=== PATIENT | male | born 1965 | race Caucasian/White ===

== ENCOUNTER 2018-11-28 21:26 | Inpatient (IN) ==
[2018-11-28] MEDS ORDERED: Ipratropium/Albuterol Neb 3 ML IH ONE (21:33)
[2018-11-28] MEDS ORDERED: methylPREDNISolone 125 MG/2 ML VIAL IVP ONE (21:33)
--- NOTE | 2018-11-28 21:33 | Emergency Department Note ---
Disposition Clinical Impression: Acute exacerbation of chronic obstructive airways disease, Hypoxia Fever Qualifiers: Fever type: due to other condition Qualified Code(s): R50.81 - Fever presenting with conditions classified elsewhere Disposition: Admitted As Inpatient Condition: Fair Time of Disposition: 23:30 SOB HPI - General Stated Complaint: NICOLE Time Seen by Provider: 11/28/18 21:32 Source: patient, EMS Mode of arrival: EMS Limitations: no limitations Nursing Notes Reviewed: Yes Vital Signs Reviewed: Yes - History of Present Illness Presents to the ED via EMS with complaint of shortness of breath and a dry cough. He has been short of breath for 4 days. He reports some rhinorrhea but no nasal congestion. No sore throat or sneezing. Cough is nonproductive. He reports some nausea as well as some watery diarrhea. No abdominal pain. He complains of chest discomfort only during coughing episodes. No urinary symptoms. No leg swelling. He does report subjective fever but has not checked his temperature at home. He has a history of COPD for which she uses Symbicort and albuterol. He is had one nebulizer treatment at home today as well as using his inhaler twice prior to calling the squad. Per EMS he was 89% on room air on their arrival. They placed him on nasal cannula 4 L and he improved into the 90s. Patient has not recently been hospitalized, on steroids or antibiotics. He denies any recent travel. His son does have a cold currently. The only other medical issues high blood pressure. - Related Data Home Medications Medication Instructions Recorded Confirmed Albuterol Sulfate [Proair HFA] 1 puff IH Q4HR 03/22/15 11/29/18 Losartan [Cozaar] 25 mg PO DAILY 03/22/15 11/29/18 amLODIPine [Norvasc] 10 mg PO DAILY 11/29/18 11/29/18 Allergies Allergy/AdvReac Type Severity Reaction Status Date / Time morphine Allergy Rash Verified 11/28/18 21:40 Constitutional: Reports: fever (subjective). Denies: chills, weakness, weight change Eyes: Denies: eye pain, eye discharge, vision change ENT ED: Denies: ear pain, throat pain, dental pain, hearing loss, epistaxis, congestion, dysphagia Cardiovascular: Denies: chest pain, palpitations, dyspnea on exertion, edema, syncope Respiratory: Reports: cough, dyspnea. Denies: wheezes, hemoptysis, stridor, sputum production Gastrointestinal: Reports: nausea, diarrhea. Denies: abdominal pain, vomiting Genitourinary: Denies: urgency, dysuria, frequency, hematuria Musculoskeletal: Denies: back pain, neck pain, arthralgia, myalgia Integumentary: Denies: rash, abrasion, lesions Neurological: Denies: headache, weakness, numbness, paresthesias, confusion, abnormal gait, vertigo Psychiatric: Denies: anxiety, depression, suicidal thoughts, homicidal thoughts, auditory hallucinations, visual hallucinations Endocrine: Denies: fatigue Hematological/Lymphatic: Denies: easy bleeding, easy bruising Allergic/Immunologic: Denies: facial swelling, urticaria Past Medical History - Past Medical History Medical history: Reports: COPD, hypertension Surgical history: Reports: herniorrhaphy, other Psychiatric history: Reports: anxiety, panic disorder - Social History Smoking Status: Former smoker Smokeless Tobacco Status: No Alcohol use: Reports: heavy Drug use: Reports: none Physical Exam - General Limitations: no limitations General appearance: alert, in no apparent distress - Head Head exam: atraumatic, normocephalic, normal inspection - Eye Eye exam: Present: normal appearance, PERRL, EOMI - ENT ENT exam: normal exam, normal oropharynx, mucous membranes moist - Neck Neck exam: Present: normal inspection, full ROM, trachea midline - Chest Chest inspection: Present: normal inspection, symmetric chest wall rise - Respiratory Respiratory exam: Present: wheezes (scattered) - Expanded Respiratory Exam Location: decreased breath sounds: Left, Right, Upper, Lower - Cardiovascular Cardiovascular exam: Present: regular rate, normal rhythm, normal heart sounds - Abdominal Exam Abdominal exam: Present: soft, Non-Tender. Absent: tenderness, distention, guarding, rebound, rigidity - Extremities Exam Extremities exam: Present: normal inspection, full ROM. Absent: tenderness, pedal edema - Back Exam Back exam: Present: normal inspection, full ROM. Absent: tenderness - Neurological Exam Neurological exam: Present: alert, oriented X3 - Psychiatric Psychiatric exam: Present: normal affect, normal mood - Skin Skin exam: Present: warm, dry, intact, normal color Course Course Narrative: Patient presents to the ED with shortness of breath and a dry cough. On arrival he was febrile at 101.7 sided tachycardic at 112. Oxygen saturations are in the low 90s on 4 L which she is tolerating well. He had some scattered wheezing and rhonchi. Will give a nebulizer treatment and steroids. Will obtain chest x-ray and lab work. I suspect pneumonia versus COPD exacerbation. - Reevaluation(s) Reevaluation #1: Lab work showed a leukocytosis. Lactic acid was normal. BMP revealed what appears to be acute kidney injury with elevated creatinine compared patient's baseline. Chest x-ray did not reveal any pneumonia. Attempts to wean him off oxygen were unsuccessful his sats dropping back into the upper 80s. Based on these findings patient needs admission for IV antibiotics and continued oxygen. Discussed this with the patient and he is in agreement. Will obtain blood cultures prior to initiating antibiotics. Will contact the hospitalist on-call. Reevaluation #2: I spoke to the hospice on-call, Dr. Baird who agreed to accept the patient. Reevaluation #3: It was brought to my attention by staff that patient's PCP is Fabienne Mcallister and therefore he should be admitted by the physician on-call for Dr. Graves and Dr. Corrales's group. Dr. Corrales was contacted and agreed to accept the patient. Dr. Baird was notified of the change. Time: 01:20 Vital Signs Temperature 101.7 F H 11/28/18 21:32 Pulse Rate 110 11/28/18 21:32 Respiratory Rate 20 11/28/18 21:32 Blood Pressure 124/75 11/28/18 21:32 O2 Sat by Pulse Oximetry 93 11/28/18 21:32 Temperature 97.5 F L 11/29/18 02:09 Pulse Rate 71 11/29/18 02:09 Respiratory Rate 16 11/29/18 02:09 Blood Pressure 120/85 11/29/18 02:09 O2 Sat by Pulse Oximetry 94 11/29/18 02:20 Oxygen Delivery Oxygen Delivery Nasal Cannula Shortness of Breath/Dyspnea - Differential Diagnosis Likely: acute exacerbation of chronic obstructive airways disease, pneumonia - Medical Records Medical records reviewed: Yes I reviewed the patient's medical records. - Lab Data Lab results reviewed: Yes I reviewed the patient's lab results. Result diagrams: 11/28/18 21:50 11/28/18 21:50 Lab Results 11/28/18 11/28/18 11/28/18 Range/Units 21:50 21:50 21:50 WBC 11.3 H (4.3-11.1) K/mcL RBC 4.28 (4.19-5.50) M/mcL Hgb 14.2 (12.9-16.9) g/dL Hct 39.7 (37.5-50.1) % MCV 92.8 (83.0-100.0) fL MCH 33.2 (28.0-33.3) pg MCHC 35.8 H (31.6-35.5) g/dL RDW 13.0 (11.5-14.5) % Plt Count 227 (140-400) K/mcL MPV 8.5 L (9.4-12.4) fL Immature Gran % 0.7 (0-4) % Seg Neutrophils % 88.5 % Lymphocytes % 3.6 % Monocytes % 6.9 % Eosinophils % 0.0 % Basophils % 0.3 % Neutrophils # 10.0 H (1.6-8.9) K/mcL Lymphocytes # 0.4 L (0.6-4.6) K/mcL Monocytes # 0.8 (0.0-1.3) K/mcL Eosinophils # 0.0 (0.0-0.6) K/mcL Basophils # 0.0 (0.0-0.2) K/mcL Sodium 123 L (136-145) mEq/L Potassium 4.2 (3.5-5.1) mEq/L Chloride 97 L (98-107) mEq/L Carbon Dioxide 17 L (23-29) mEq/L BUN 23 H (6-20) mg/dL Creatinine 1.64 H (0.70-1.30) mg/dL Est GFR ( Amer) 54 L (> 60) Est GFR (Non-Af Amer) 44 L (> 60) BUN/Creatinine Ratio 14 (6-26) Glucose 127 H (70-105) mg/dL Calculated Osmolality 261 L (280-300) Lactic Acid 0.7 (0.5-2.2) mmol/L Calcium 9.1 (8.6-10.3) mg/dL Troponin I < 0.03 (< 0.04) ng/mL B-Natriuretic Peptide (Less than 100) pg/mL 11/28/18 11/28/18 Range/Units 21:50 23:45 WBC (4.3-11.1) K/mcL RBC (4.19-5.50) M/mcL Hgb (12.9-16.9) g/dL Hct (37.5-50.1) % MCV (83.0-100.0) fL MCH (28.0-33.3) pg MCHC (31.6-35.5) g/dL RDW (11.5-14.5) % Plt Count (140-400) K/mcL MPV (9.4-12.4) fL Immature Gran % (0-4) % Seg Neutrophils % % Lymphocytes % % Monocytes % % Eosinophils % % Basophils % % Neutrophils # (1.6-8.9) K/mcL Lymphocytes # (0.6-4.6) K/mcL Monocytes # (0.0-1.3) K/mcL Eosinophils # (0.0-0.6) K/mcL Basophils # (0.0-0.2) K/mcL Sodium (136-145) mEq/L Potassium (3.5-5.1) mEq/L Chloride (98-107) mEq/L Carbon Dioxide (23-29) mEq/L BUN (6-20) mg/dL Creatinine (0.70-1.30) mg/dL Est GFR ( Amer) (> 60) Est GFR (Non-Af Amer) (> 60) BUN/Creatinine Ratio (6-26) Glucose (70-105) mg/dL Calculated Osmolality (280-300) Lactic Acid 0.5 (0.5-2.2) mmol/L Calcium (8.6-10.3) mg/dL Troponin I (< 0.04) ng/mL B-Natriuretic Peptide 43 (Less than 100) pg/mL - Radiology Data Radiology results reviewed: Yes I reviewed the patient's radiology results. ITS Impressions Chest X-Ray 11/28/18 21:33 IMPRESSION: No acute process. D/ / Pedro Randolph MD / Pedro Randolph MD Interpreting Provider: Pedro Randolph MD - EKG Data EKG attestation: Yes I reviewed and interpreted this EKG. EKG shows normal: Reports: sinus rhythm Rate: Reports: normal (rate 109), tachycardia (R) Rhythm: Reports: NSR [place]/QRS: Reports: normal
[2018-11-28 22:01] LABS: Basophils % 0.3 %; Hematocrit 39.7 % (37.5-50.1); Hemoglobin 14.2 g/dL (12.9-16.9); Immature Granulocytes % 0.7 % (0-4); Lymphocytes # 0.4 K/mcL (0.6-4.6); Lymphocytes % 3.6 %; Mean Corpuscular HGB Conc 35.8 g/dL (31.6-35.5); Mean Corpuscular Hemoglobin 33.2 pg (28.0-33.3); Mean Corpuscular Volume 92.8 fL (83.0-100.0); Mean Platelet Volume 8.5 fL (9.4-12.4); Monocytes # 0.8 K/mcL (0.0-1.3); Monocytes % 6.9 %; Platelet Count 227 K/mcL (140-400); Red Blood Count 4.28 M/mcL (4.19-5.50); Segmented Neutrophils % 88.5 %; White Blood Count 11.3 K/mcL (4.3-11.1)
[2018-11-28 22:14] LABS: BUN/Creatinine Ratio 14 (6-26); Blood Urea Nitrogen 23 mg/dL (6-20); Calcium 9.1 mg/dL (8.6-10.3); Carbon Dioxide 17 mEq/L (23-29); Chloride 97 mEq/L (98-107); Glucose 127 mg/dL (70-105); Osmolality,Calculated 261 (280-300); Potassium 4.2 mEq/L (3.5-5.1); Sodium 123 mEq/L (136-145); eGFR For African Americans 54 (> 60); eGFR For Non-African Americans 44 (> 60)
[2018-11-28 22:18] LABS: Troponin I < 0.03 ng/mL (< 0.04)
[2018-11-28] MEDS ORDERED: Azithromycin 500 MG in D5% in Water 250 ML IVPB ONE (23:31)
[2018-11-28] MEDS ORDERED: 0.9 % Sodium Chloride 1,000 ML IVC SCH (23:45)
[2018-11-28] MEDS ORDERED: Naloxone 0.4 MG/ML INJ IVP PRN (23:56)
[2018-11-29] MEDS ORDERED: Ipratropium/Albuterol Neb 3 ML IH SCH
[2018-11-29] MEDS ORDERED: cefTRIAXone 1,000 MG in Water for inj. (sterile) 10 ML IVP ONE (01:10)
[2018-11-29] MEDS ORDERED: Naloxone 0.4 MG/ML INJ IVP PRN (02:01)
[2018-11-29] MEDS: 0.9 % Sodium Chloride 1,000 ML IVC SCH ×3 (02:33→17:16)
[2018-11-29] MEDS: Ipratropium/Albuterol Neb 3 ML IH SCH ×5 (04:24→20:39)
[2018-11-29 06:16] LABS: Basophils % 0.1 %; Hematocrit 38.9 % (37.5-50.1); Hemoglobin 13.4 g/dL (12.9-16.9); Immature Granulocytes % 0.6 % (0-4); Lymphocytes # 0.3 K/mcL (0.6-4.6); Lymphocytes % 2.9 %; Mean Corpuscular HGB Conc 34.4 g/dL (31.6-35.5); Mean Corpuscular Hemoglobin 32.8 pg (28.0-33.3); Mean Corpuscular Volume 95.3 fL (83.0-100.0); Mean Platelet Volume 9.1 fL (9.4-12.4); Monocytes % 2.1 %; Platelet Count 257 K/mcL (140-400); Red Blood Count 4.08 M/mcL (4.19-5.50); Red Cell Distribution Width 12.9 % (11.5-14.5); Segmented Neutrophils % 94.3 %; White Blood Count 11.6 K/mcL (4.3-11.1)
[2018-11-29 06:26] LABS: Monocytes # 0.2 K/mcL (0.0-1.3); Neutrophils # 10.9 K/mcL (1.6-8.9)
[2018-11-29] MEDS: *HR* Enoxaparin 40 MG/0.4 ML SYRINGE SQ SCH (06:27)
[2018-11-29 06:48] LABS: Calcium 8.8 mg/dL (8.6-10.3); Potassium 4.7 mEq/L (3.5-5.1)
[2018-11-29] MEDS ORDERED: *HR* Enoxaparin 40 MG/0.4 ML SYRINGE SQ SCH (07:00)
[2018-11-29] MEDS: methylPREDNISolone 125 MG/2 ML VIAL IVP SCH ×2 (08:09→16:50)
[2018-11-29] MEDS: amLODIPine 5 MG TABLET PO SCH (08:09)
--- NOTE | 2018-11-29 09:33 | Internal Med History&Physical ---
Date of Encounter: 11/29/18 Time of Encounter: 14:13 Assessment and Plan (1) Acute exacerbation of chronic obstructive airways disease Current visit: Yes Status: Acute he is on oxygen, will cont duonebs, solumedrol, rocephin and zithromax (2) Essential (primary) hypertension Current visit: Yes Status: Acute he is on his home medication, but if he gets low will hold medication (3) Anxiety Current visit: Yes Status: Acute (4) GERD (gastroesophageal reflux disease) Current visit: Yes Status: Acute Qualifiers: Esophagitis presence: esophagitis presence not specified Qualified Code(s): K21.9 - Gastro-esophageal reflux disease without esophagitis (5) Hypoxia Current visit: Yes Status: Acute due to copd on oxygen (6) Fever Current visit: Yes Status: Acute blood cultures pending on rocephin and zithromax Qualifiers: Fever type: unspecified Qualified Code(s): R50.9 - Fever, unspecified (7) Hyponatremia Current visit: Yes Status: Acute likely due to dehydrtion improving with ivf will continue (8) Acute renal insufficiency Current visit: Yes Status: Acute due to dehydration and due to 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 will cont ivf and follow creat (9) S/p nephrectomy Current visit: Yes Status: Acute (10) DVT prophylaxis Current visit: Yes Status: Acute lovenox (11) ETOH abuse Current visit: Yes Status: Acute Please him on the CIWA protocol. Will use Ativan as needed. He currently does not show any signs of withdrawal. Discussed with him that we will be monitoring for Internal Medicine - H&P: HPI Chief complaint: cannot breath Admitted From: Home Plans for Post Hospital Care: Home History of present illness: Mr. Mo is a 53 year old male Rest medical history of COPD who presents to the emergency room with cough we shortness of breath and fever. He called the squad he was given duo nebs. In the emergency room is given Solu-Medrol Zithromax duo nebs his chest x-ray did not show any acute illness. He was febrile 101.7. Blood cultures were obtained. He did improve in the ER but he did have another episode in his room this morning with coughing wheezing shortness breath he could not get his air staff came in he was sat in the 90s on oxygen. He was given a DuoNeb shortness of breath to get better. His son was ill for a couple of days prior to him becoming ill on Tuesday. He started out with cough rhinorrhea sneezing and dark sputum wheezing shortness of breath progressively got worse yesterday he discontinued his breath he was really tired he had several episodes of diarrhea over the past several days he did have an episode of diarrhea today he denies melena hematochezia. He denies nausea vomiting or abdominal pain. He does get dizzy when he coughs he has had some palpitations but denies chest pain. He does feel better today he is not a shortness breath is when he was prior. Past Med Surg Social Fam HX - Past Medical History Medical history: COPD, GERD, hypertension Psychiatric history: anxiety, panic disorder - Past Surgical History Surgical History: herniorrhaphy, other (living kidney donor 11/2003) Additional surgical history: LT KIDNEY REMOVED - Social History Smoking Status: Current every day smoker Smokeless Tobacco Status: No Alcohol use: heavy, recent Drug use: none Internal Medicine - H&P: Meds Albuterol Sulfate [Proair HFA] 1 puff IH Q4HR 03/22/15 [History] Losartan [Cozaar] 25 mg PO DAILY 03/22/15 [History] amLODIPine [Norvasc] 10 mg PO DAILY 11/29/18 [History] Allergy/AdvReac Type Severity Reaction Status Date / Time morphine Allergy Rash Verified 11/28/18 21:40 All Systems PM: A 10-system review of systems was performed and is negative for pertinent findings except as documented above in the HPI. - Constitutional Constitutional: chills, fatigue, fever(s), night sweats - EENT Eyes: no change in vision Nose, mouth and throat: nasal congestion - Cardiovascular Cardiovascular ROS IM: diaphoresis, dyspnea, lightheadedness (With cough), orthopnea, palpitations, no chest pain, no claudication - Respiratory Respiratory: cough, dyspnea, wheezing, change in phlegm color - Gastrointestinal Gastrointestinal: dyspepsia, loose stools, no abdominal pain, no constipation, no diarrhea, no melena, no nausea, no vomiting - Genitourinary Genitourinary ROS male: no difficulty urinating, no dysuria, no hematuria, no urinary frequency, no urinary incontinence - Musculoskeletal Musculoskeletal ROS IM: no limited range of motion, no numbness - Integumentary Integumentary IM: no pruritus, no rash - Neurological Neurological ROS: no numbness, no tremor(s) - Psychiatric Psychiatric: anxiety - Endocrine Endocrine IM: fatigue - Allergic/Immunologic Allergic/Immunologic: wheezing - Constitutional Vitals: Temp Pulse Resp BP Pulse Ox 96.4 F L 71 20 106/72 92 11/29/18 08:08 11/29/18 08:08 11/29/18 08:08 11/29/18 08:08 11/29/18 08:08 General appearance: Present: A&O X 3, no acute distress, answers questions appropriately - Head Head exam: Present: atraumatic, normocephalic - Respiratory Respiratory exam: Present: decreased breath sounds, prolonged expiratory phase, wheezes. Absent: accessory muscle use, tachypnea - Cardiovascular Cardiovascular exam: Present: RRR, +S1, +S2. Absent: systolic murmur - GI/Abdominal GI/Abdominal exam: Present: normal bowel sounds, soft, no peritoneal signs. Absent: distended, guarding, rebound, tenderness - Extremities Exam Extremities exam: Present: normal capillary refill. Absent: pedal edema - Skin Skin exam: Present: dry, warm. Absent: rash Internal Med - H&P Results - Labs CBC & Chem 7: 11/29/18 04:45 11/29/18 04:45 Labs: Short CBC 11/28/18 11/29/18 Range/Units 21:50 04:45 WBC 11.3 H 11.6 H (4.3-11.1) K/mcL Hgb 14.2 13.4 (12.9-16.9) g/dL Hct 39.7 38.9 (37.5-50.1) % Plt Count 227 257 (140-400) K/mcL Neutrophils # 10.0 H 10.9 H (1.6-8.9) K/mcL BMP 11/28/18 11/29/18 21:50 04:45 Sodium 123 L 128 L Potassium 4.2 4.7 Chloride 97 L 98 Carbon Dioxide 17 L 22 L BUN 23 H 24 H Creatinine 1.64 H 1.65 H Glucose 127 H 163 H Calcium 9.1 8.8 Cardiac Enzymes 11/28/18 Range/Units 21:50 Troponin I < 0.03 (< 0.04) ng/mL - Impressions ITS Impressions Chest X-Ray 11/28/18 21:33 IMPRESSION: No acute process. D/ / Pedro Randolph MD / Pedro Randolph MD Interpreting Provider: Pedro Randolph MD - VTE Reasons for not Prescribing Prophylaxis: Treatment not Indicated - Low risk for VTE
[2018-11-29] MEDS ORDERED: *HR* LORazepam 2 MG/ML VIAL IVP PRN (14:11)
[2018-11-29] MEDS: Famotidine 20 MG TABLET PO SCH ×2 (16:50→20:39)
--- NOTE | 2018-11-29 16:54 | Electrocardiograph Report ---
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
[2018-11-29] MEDS ORDERED: Thiamine (B-1) 100 MG, Folic Acid 1 MG, MVI, adult with vitamin K 10 ML in 0.9 % Sodi... IVPB SCH (18:00)
[2018-11-29] MEDS: Thiamine (B-1) 100 MG TABLET PO SCH (18:24)
[2018-11-30] MEDS: Ipratropium/Albuterol Neb 3 ML IH SCH ×7 (00:05→23:52)
[2018-11-30] MEDS: methylPREDNISolone 125 MG/2 ML VIAL IVP SCH ×3 (00:05→17:14)
[2018-11-30] MEDS: 0.9 % Sodium Chloride 1,000 ML IVC SCH (03:13)
[2018-11-30] MEDS: *HR* Enoxaparin 40 MG/0.4 ML SYRINGE SQ SCH (04:40)
[2018-11-30 07:08] LABS: Basophils % 0.1 %; Hematocrit 33.7 % (37.5-50.1); Hemoglobin 11.8 g/dL (12.9-16.9); Immature Granulocytes % 0.3 % (0-4); Lymphocytes # 0.3 K/mcL (0.6-4.6); Lymphocytes % 2.7 %; Mean Corpuscular Hemoglobin 32.9 pg (28.0-33.3); Mean Corpuscular Volume 93.9 fL (83.0-100.0); Mean Platelet Volume 9.4 fL (9.4-12.4); Monocytes % 2.9 %; Platelet Count 243 K/mcL (140-400); Red Blood Count 3.59 M/mcL (4.19-5.50); White Blood Count 11.9 K/mcL (4.3-11.1)
[2018-11-30 07:22] LABS: Alanine Aminotransferase 18 Units/L (7-52); Albumin 3.4 g/dL (3.5-5.7); Albumin/Globulin Ratio 1.2 (1.1-2.2); Alkaline Phosphatase 46 Units/L (34-104); Aspartate Amino Transferase 16 Units/L (13-39); BUN/Creatinine Ratio 22 (6-26); Bilirubin,Direct 0.1 mg/dL (0.0-0.2); Bilirubin,Indirect 0.1 mg/dL (0.0-1.2); Bilirubin,Total 0.2 mg/dL (0.3-1.0); Blood Urea Nitrogen 20 mg/dL (6-20); Calcium 8.6 mg/dL (8.6-10.3); Carbon Dioxide 18 mEq/L (23-29); Chloride 106 mEq/L (98-107); Globulin 2.9 g/dL (2.4-3.5); Glucose 186 mg/dL (70-105); Osmolality,Calculated 279 (280-300); Potassium 3.8 mEq/L (3.5-5.1); Sodium 131 mEq/L (136-145); Total Protein 6.3 g/dL (6.4-8.9); eGFR For African Americans > 60 (> 60); eGFR For Non-African Americans > 60 (> 60)
[2018-11-30 08:15] LABS: Monocytes # 0.4 K/mcL (0.0-1.3); Neutrophils # 11.2 K/mcL (1.6-8.9)
--- NOTE | 2018-11-30 08:43 | Internal Med Progress Note ---
Date of Encounter: 11/30/18 Time of Encounter: 09:30 - Assessment and plan (1) Acute exacerbation of chronic obstructive airways disease Current Visit: Yes Status: Acute Assessment and plan: He continues to have an oxygen requirement he was not on oxygen prior to admission will continue Solu-Medrol Rocephin and Zithromax duo nebs. Not stable for discharge at this point as he still has the oxygen requirement (2) Essential (primary) hypertension Current Visit: Yes Status: Acute Assessment and plan: Blood pressure has been stable we will continue current medications. (3) Anxiety Current Visit: Yes Status: Acute Assessment and plan: Not taking any medication for this. (4) GERD (gastroesophageal reflux disease) Current Visit: Yes Status: Acute Assessment and plan: He takes Pepcid as needed at home we did add Pepcid scheduled while he was getting Solu-Medrol here Qualifiers: Esophagitis presence: esophagitis presence not specified Qualified Code(s): K21.9 - Gastro-esophageal reflux disease without esophagitis (5) Hypoxia Current Visit: Yes Status: Acute Assessment and plan: He has a new oxygen requirement he has not been able to be weaned yet (6) Fever Current Visit: Yes Status: Acute Assessment and plan: He had a fever on admission likely due to respiratory infection. He is on Rocephin and Zithromax blood cultures are pending Qualifiers: Fever type: unspecified Qualified Code(s): R50.9 - Fever, unspecified (7) Hyponatremia Current Visit: Yes Status: Acute Assessment and plan: He is improving with IV fluids this is likely due to dehydration with a respiratory illness and his diarrhea that he had. Will repeat BMP tomorrow (8) Acute renal insufficiency Current Visit: Yes Status: Acute Assessment and plan: Likely due to dehydration it is improving with IV fluids. 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 (9) S/p nephrectomy Current Visit: Yes Status: Acute (10) DVT prophylaxis Current Visit: Yes Status: Acute Assessment and plan: Lovenox (11) ETOH abuse Current Visit: Yes Status: Acute Assessment and plan: He is on the CIWA protocol. He has not required any doses of Ativan but it is ordered as needed along with vitamin replacement. - Subjective Interval history: he is still sob, he has not really adelfo out of bed due to sob, back and forth to the bathroom. still cough wheeze, no chest pain. no n/v, last diarrhea yesterday am. - Constitutional Vitals: Temp Pulse Resp BP Pulse Ox 97.8 F 78 18 116/76 96 11/30/18 07:32 11/30/18 07:32 11/30/18 07:32 11/30/18 07:32 11/30/18 07:32 General appearance: Present: A&O X 3, no acute distress, answers questions appropriately - Head Head exam: Present: atraumatic, normocephalic - Neck Neck exam general surgery: Present: supple, trachea midline - Respiratory Respiratory exam: Present: decreased breath sounds, prolonged expiratory phase, wheezes - Cardiovascular Cardiovascular exam: Present: RRR. Absent: systolic murmur - GI/Abdominal GI/Abdominal exam: Present: normal bowel sounds, soft, no peritoneal signs. Absent: distended, guarding, mass, tenderness - Extremities Exam Extremities exam: Present: warm. Absent: cyanotic, pedal edema - Skin Skin exam: Present: dry, warm. Absent: rash Internal Medicine: Result - Labs CBC & Chem 7: 11/30/18 06:16 11/30/18 06:16 Labs: Short CBC 11/30/18 Range/Units 06:16 WBC 11.9 H (4.3-11.1) K/mcL Hgb 11.8 L D (12.9-16.9) g/dL Hct 33.7 L (37.5-50.1) % Plt Count 243 (140-400) K/mcL Neutrophils # 11.2 H (1.6-8.9) K/mcL BMP 11/30/18 06:16 Sodium 131 L Potassium 3.8 Chloride 106 Carbon Dioxide 18 L BUN 20 Creatinine 0.91 Glucose 186 H Calcium 8.6 Cardiac Enzymes 11/29/18 Range/Units 10:42 Troponin I < 0.03 (< 0.04) ng/mL Liver Function 11/30/18 Range/Units 06:16 Total Bilirubin 0.2 L (0.3-1.0) mg/dL Direct Bilirubin 0.1 (0.0-0.2) mg/dL AST 16 (13-39) Units/L ALT 18 (7-52) Units/L Alkaline Phosphatase 46 (34-104) Units/L Albumin 3.4 L (3.5-5.7) g/dL - ABG Interpretation ABG results: PT/INR, D-dimer 333 ng/mLFEU (0-500) 11/29/18 10:42 - VTE Reasons for not Prescribing Prophylaxis: Treatment not Indicated - Low risk for VTE Consult Discharge Plan - Plan Referrals: Fabienne Mcallister, DEPUTY ASSESSOR [Primary Care Provider] -
[2018-11-30] MEDS: Folic Acid 1 MG TABLET PO SCH (08:47)
[2018-11-30] MEDS: Thiamine (B-1) 100 MG TABLET PO SCH (08:47)
[2018-11-30] MEDS: Famotidine 20 MG TABLET PO SCH ×2 (08:48→20:16)
[2018-11-30] MEDS: Vitamin B Complex/Vit C/Vit E 1 EACH TABLET PO SCH (08:48)
[2018-11-30] MEDS: amLODIPine 5 MG TABLET PO SCH (08:48)
[2018-11-30] MEDS ORDERED: Thiamine (B-1) 100 MG TABLET PO SCH (09:00)
[2018-12-01] MEDS: methylPREDNISolone 125 MG/2 ML VIAL IVP SCH ×3 (00:13→17:09)
[2018-12-01] MEDS: Ipratropium/Albuterol Neb 3 ML IH SCH ×6 (04:00→23:48)
[2018-12-01 05:05] LABS: Basophils % 0.2 %; Hematocrit 33.1 % (37.5-50.1); Hemoglobin 11.4 g/dL (12.9-16.9); Immature Granulocytes % 0.4 % (0-4); Lymphocytes # 0.4 K/mcL (0.6-4.6); Lymphocytes % 3.6 %; Mean Corpuscular HGB Conc 34.4 g/dL (31.6-35.5); Mean Corpuscular Volume 95.9 fL (83.0-100.0); Mean Platelet Volume 8.9 fL (9.4-12.4); Monocytes # 0.2 K/mcL (0.0-1.3); Neutrophils # 10.8 K/mcL (1.6-8.9); Platelet Count 255 K/mcL (140-400); Red Blood Count 3.45 M/mcL (4.19-5.50); Red Cell Distribution Width 13.2 % (11.5-14.5); Segmented Neutrophils % 93.8 %; White Blood Count 11.5 K/mcL (4.3-11.1)
[2018-12-01 05:22] LABS: BUN/Creatinine Ratio 23 (6-26); Blood Urea Nitrogen 18 mg/dL (6-20); Calcium 8.9 mg/dL (8.6-10.3); Carbon Dioxide 21 mEq/L (23-29); Chloride 106 mEq/L (98-107); Glucose 180 mg/dL (70-105); Osmolality,Calculated 284 (280-300); Potassium 3.5 mEq/L (3.5-5.1); Sodium 134 mEq/L (136-145); eGFR For African Americans > 60 (> 60); eGFR For Non-African Americans > 60 (> 60)
[2018-12-01] MEDS: *HR* Enoxaparin 40 MG/0.4 ML SYRINGE SQ SCH (06:23)
--- NOTE | 2018-12-01 06:50 | Internal Med Progress Note ---
Date of Encounter: 12/02/18 Time of Encounter: 06:45 - Assessment and plan (1) Acute exacerbation of chronic obstructive airways disease Current Visit: Yes Status: Acute Assessment and plan: Patient is showing improvement. Saturations are improved and oxygen is requirement is being tapered. Still has significant wheezing. His ADLs are still markedly diminished with minimal activity due to respiratory symptoms. He is showing improvement but certainly not able to be decreased in his interventions but we will try to taper the oxygen. Continue IV Solu-Medrol. Labs have been reviewed and are much better. (2) Hypoxia Current Visit: Yes Status: Acute Assessment and plan: Improving hypoxic. Oxygen tapered down to 2 L. We will see how she does with increasing his activity level. Continue Solu-Medrol. (3) Fever Current Visit: Yes Status: Acute Assessment and plan: Currently no fever since admission. Blood cultures negative. Qualifiers: Fever type: unspecified Qualified Code(s): R50.9 - Fever, unspecified (4) Essential (primary) hypertension Current Visit: Yes Status: Chronic Assessment and plan: Blood pressure is under good control. Continue same medication. (5) Anxiety Current Visit: Yes Status: Acute Assessment and plan: He denies any withdrawal symptoms. Denies any problems other than having anxiety with his shortness of breath yesterday getting to the toilet. We will see how today goes. (6) GERD (gastroesophageal reflux disease) Current Visit: Yes Status: Chronic Qualifiers: Esophagitis presence: esophagitis presence not specified Qualified Code(s): K21.9 - Gastro-esophageal reflux disease without esophagitis (7) Hyponatremia Current Visit: Yes Status: Acute Assessment and plan: Hyponatremia nearly now back to normal. I do not think we need follow-up lab work tomorrow. (8) Acute renal insufficiency Current Visit: Yes Status: Acute Assessment and plan: Renal function is back to normal. (9) DVT prophylaxis Current Visit: Yes Status: Acute - Subjective Interval history: Patient feels that he is doing better. He said he still had a panic a respiratory attack when he walked just a few feet to the bathroom. He states he is doing much better, his breathing is better. He denies any cardiac type chest pain or palpitations. He is able to sit at the edge the bed with his meals and to sit up during the day. He has really not been more active than that because of dyspnea. No significant sputum production. He denies any GI or symptoms. He denies any withdrawal symptoms. Nurses report that they are tapering his oxygen now down to 2 L per nasal cannula and saturations were in the 90s. 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 - Constitutional Vitals: Temp Pulse Resp BP Pulse Ox 97.6 F 68 17 115/79 97 12/01/18 04:00 12/01/18 04:00 12/01/18 04:00 12/01/18 04:00 12/01/18 04:00 General appearance: Present: A&O X 3, no acute distress, answers questions appropriately Exam: He did have audible wheezing during conversation - Respiratory Additional comments: Markedly increased expiratory phase. Expiratory wheezes heard in all lung fiel ds. No crackles. No respiratory distress. However during conversation I can hear him wheezing. No orthopnea. - Cardiovascular Cardiovascular exam: Present: distant heart sounds, RRR, +S1, +S2 - GI/Abdominal GI/Abdominal exam: Present: soft. Absent: tenderness - Extremities Exam Extremities exam: Absent: calf tenderness, pedal edema Internal Medicine: Result - Labs CBC & Chem 7: 12/01/18 04:42 12/01/18 04:42 Labs: Short CBC 11/30/18 12/01/18 Range/Units 06:16 04:42 WBC 11.9 H 11.5 H (4.3-11.1) K/mcL Hgb 11.8 L D 11.4 L (12.9-16.9) g/dL Hct 33.7 L 33.1 L (37.5-50.1) % Plt Count 243 255 (140-400) K/mcL Neutrophils # 11.2 H 10.8 H (1.6-8.9) K/mcL BMP 11/30/18 12/01/18 06:16 04:42 Sodium 131 L 134 L Potassium 3.8 3.5 Chloride 106 106 Carbon Dioxide 18 L 21 L BUN 20 18 Creatinine 0.91 0.80 Glucose 186 H 180 H Calcium 8.6 8.9 Liver Function 11/30/18 Range/Units 06:16 Total Bilirubin 0.2 L (0.3-1.0) mg/dL Direct Bilirubin 0.1 (0.0-0.2) mg/dL AST 16 (13-39) Units/L ALT 18 (7-52) Units/L Alkaline Phosphatase 46 (34-104) Units/L Albumin 3.4 L (3.5-5.7) g/dL Labs have been reviewed. White blood cell count is slightly elevated but stable. Sodium and almost back to normal. Renal function is good. Blood cultures are still negative. - ABG Interpretation ABG results: PT/INR, D-dimer 333 ng/mLFEU (0-500) 11/29/18 10:42 - VTE Reasons for not Prescribing Prophylaxis: Treatment not Indicated - Low risk for VTE Consult Discharge Plan - Plan Referrals: Fabienne Mcallister CNP [Primary Care Provider] - 12/05/18 1:00 pm Prescriptions: predniSONE [PredniSONE] 10 mg PO DAILY #63 tablet Budesonide/Formoterol 160/4.5 [Symbicort 160/4.5] 2 puff IH BIDR #1 [email or web address]
[2018-12-01] MEDS: Famotidine 20 MG TABLET PO SCH ×2 (08:51→21:02)
[2018-12-01] MEDS: Vitamin B Complex/Vit C/Vit E 1 EACH TABLET PO SCH (08:51)
[2018-12-01] MEDS: Thiamine (B-1) 100 MG TABLET PO SCH (08:52)
[2018-12-01] MEDS: Folic Acid 1 MG TABLET PO SCH (08:52)
[2018-12-01] MEDS: amLODIPine 5 MG TABLET PO SCH (08:52)
[2018-12-02] MEDS: methylPREDNISolone 125 MG/2 ML VIAL IVP SCH ×2 (00:01→07:54)
[2018-12-02] MEDS: Ipratropium/Albuterol Neb 3 ML IH SCH ×2 (04:30→07:08)
[2018-12-02] MEDS: *HR* Enoxaparin 40 MG/0.4 ML SYRINGE SQ SCH (05:54)
[2018-12-02] MEDS: Vitamin B Complex/Vit C/Vit E 1 EACH TABLET PO SCH (07:53)
[2018-12-02] MEDS: Famotidine 20 MG TABLET PO SCH (07:53)
[2018-12-02] MEDS: Folic Acid 1 MG TABLET PO SCH (07:54)
[2018-12-02] MEDS: Thiamine (B-1) 100 MG TABLET PO SCH (07:54)
[2018-12-02] MEDS: amLODIPine 5 MG TABLET PO SCH (07:54)
[2018-12-02] MEDS ORDERED: Ipratropium/Albuterol Neb 3 ML IH PRN (10:04)
[2018-12-02 12:38] VITALS: BP 124/76
--- NOTE | 2018-12-02 14:32 | Discharge Summary ---
- NOTES TO OUTPATIENT PROVIDER Notes to Outpatient Provider: #1. Patient was admitted for exacerbation of COPD. Was discharged on tapering prednisone and his nebulizer machine. Date of Encounter: 12/02/18 Time of Encounter: 14:29 - Discharge Diagnosis (1) Acute exacerbation of chronic obstructive airways disease Priority: Primary Status: Acute Comments: Patient was admitted by Dr. Del Real after patient came to the emergency room with shortness of breath and fever. His symptoms do not improve with nebulizer treatment. He was admitted to the hospital. He required oxygen at 3-4 L per nasal cannula, frequent nebulizer treatments every 4 hours, intravenous steroids of 80 mg every 8 hours. He was too dyspneic to walk a few feet to the bathroom. White blood cell count stayed minimally elevated at 11,000. During the hospital course, his fever did not recur. Blood cultures were negative. Chest x-ray showed no acute changes. He had received antibiotics in the ER but none after that. He was doing poorly until Tuesday evening when he was then able to be on room air and increase his ADLs. On day of discharge he was ambulatory in the hallway, maintain oxygen saturation 94% on room air, did not require breathing treatments every 4 hours. He felt his breathing was back to baseline. He was discharged on taper of prednisone starting at 60 mg for 3 days, 50 mg for 3 days etc. He is to restart his nebulizer treatments at home and to use up to every 4 hours. He is to restart his Symbicort and use his albuterol MDI if needed. His hypertensive medications were continued as well. He will follow-up in the office in 3 days to see Fabienne Mcallister. He will contact me over the weekend if he worsens. (2) Hypoxia Priority: Secondary Status: Acute Comments: Patient remained hypoxic until night prior to discharge. He was able to wean to room air. Today his saturations are 94% with ambulation on room air. (3) Fever Priority: Secondary Status: Acute Comments: Fever dissipated within 24 hours. Blood cultures continued to be negative. Chest x-ray showed no infiltrate. He did not require further antibiotics during the hospital course. Qualifiers: Fever type: unspecified Qualified Code(s): R50.9 - Fever, unspecified (4) Essential (primary) hypertension Priority: Secondary Status: Chronic Comments: Chronic history of hypertension. He was discharged on his usual medications of amlodipine and losartan. (5) Anxiety Priority: Secondary Status: Acute Comments: Patient is a chronic history of anxiety. He did not need any anxiolytics in the hospital. (6) GERD (gastroesophageal reflux disease) Priority: Secondary Status: Chronic Comments: He was discharged on his usual dose of Pepcid/famotidine. He had no GI symptoms during the hospital stay. Qualifiers: Esophagitis presence: esophagitis presence not specified Qualified Code(s): K21.9 - Gastro-esophageal reflux disease without esophagitis (7) Hyponatremia Priority: Secondary Status: Acute Comments: On admission he had hyponatremia with a sodium of 123 . He was given IV saline and his sodium prior to discharge was 134. (8) Acute renal insufficiency Priority: Secondary Status: Acute Comments: On admission his creatinine was 1.64. By discharge it was 0.8. Likely he had acute kidney injury from his infection and relative dehydration. (9) DVT prophylaxis Priority: Secondary Status: Acute Comments: He received Lovenox in the hospital. No complications noted. Hospital course: Mr. Mo is a 53 year old male with known history of COPD was admitted with exacerbation of COPD, hypoxia, hyponatremia, acute kidney injury. By day of discharge he was ambulatory in the hallway, saturations 94% on room air, sodium 134, creatinine 0.8. He felt like he was back to baseline and was discharged today on taper of prednisone. He told me he is no longer smoking. Please see the diagnoses above. Time spent discussing smoking cessation with patient: 3 to 10 minutes - Time Spent with Patient Total time spent providing and/or coordinating discharge services: - Discharge Medications Prescriptions: New Losartan [Cozaar] 100 mg PO DAILY tablet Ipratropium/Albuterol Neb [Duoneb] 3 ml IH Q4HR PRN inhsol PRN Reason: sob Famotidine [Pepcid] 40 mg PO BID tablet predniSONE [PredniSONE] 10 mg PO DAILY #63 tablet Budesonide/Formoterol 160/4.5 [Symbicort 160/4.5] 2 puff IH BIDR #1 hfa.aer.ad Continued Albuterol Sulfate [Albuterol Inhaler] 1 puff IH Q4HR amLODIPine [Norvasc] 10 mg PO DAILY Discontinued Losartan [Cozaar] 25 mg PO DAILY Home Medications: Albuterol Sulfate [Albuterol Inhaler] 1 puff IH Q4HR 03/22/15 [History] amLODIPine [Norvasc] 10 mg PO DAILY 11/29/18 [History] Budesonide/Formoterol 160/4.5 [Symbicort 160/4.5] 2 puff IH BIDR #1 hfa.aer.ad 12/02/18 [Rx] Famotidine [Pepcid] 40 mg PO BID tablet 12/02/18 [Rx] Ipratropium/Albuterol Neb [Duoneb] 3 ml IH Q4HR PRN inhsol 12/02/18 [Rx] Losartan [Cozaar] 100 mg PO DAILY tablet 12/02/18 [Rx] predniSONE [PredniSONE] 10 mg PO DAILY #63 tablet 12/02/18 [Rx] Allergies/Adverse Reactions: Allergy/AdvReac Type Severity Reaction Status Date / Time morphine Allergy Rash Verified 11/28/18 21:40 Date of admission: 11/30/18 11:23 Primary care physician: Fabienne Mcallister CNP Discharging clinician: Eddie Graves Anticipated date of discharge: 12/02/18 - Constitutional Vitals: Temp Pulse Resp BP Pulse Ox 97.7 F 70 18 124/76 93 12/02/18 12:00 12/02/18 12:00 12/02/18 12:00 12/02/18 12:00 12/02/18 12:00 General appearance: Present: A&O X 3, no acute distress, answers questions appropriately - Respiratory Additional comments: Very prolonged expiratory phase, very faint subtle wheezes scattered throughout. When walking in the hallway he was slightly dyspneic/working at his breathing but he said that is normal for him. He is markedly improved from admission and even for 24 hours ago. - Cardiovascular Cardiovascular exam: Present: RRR, +S1, +S2 - Extremities Exam Extremities exam: Absent: calf tenderness, pedal edema, tenderness - Patient Status Disposition: Home, Self-Care Condition: Good Functional capacity at discharge: independent ambulation Overall status at discharge: patient is progressing back to baseline - Discharge Instructions Follow Up With: Fabienne Mcallister CNP [Primary Care Provider] - 12/05/18 1:00 pm Forms: ED Satisfaction Letter - Diet and Activity Activity: increase activity as tolerated Diet: low salt diet - VTE Reasons for not Prescribing Prophylaxis: Treatment not Indicated - Low risk for VTE
== END 2018-12-02 15:18 | disposition home or self-care (01) | DRG 191 ==
LOC: EMEROOGRE 21:26 → INPGRE 21:26
PROVIDERS: ADMIT Family Medicine; ATTEND Family Medicine